=== PATIENT | male | born 1990 | race Caucasian/White ===

== ENCOUNTER 2020-12-20 17:20 | Emergency (ER) | payer OTHER ==
[~2020-12-20] VITALS: Ht 175.3 cm; Wt 94.8 kg
[2020-12-20 17:26] VITALS: BP 169/93
--- NOTE | 2020-12-20 17:26 | NUR ---
AMBULATED TO BED 6
[2020-12-20] MEDS ORDERED: NACL 0.9% 3,000 ML IV ONE (17:35)
--- NOTE | 2020-12-20 17:50 | NUR ---
30 YEAR OLD MALE PRESENTED TO ER REFERRED BY PRIMARY CARE PHYSICIAN TO RULE OUT DKA. PT VERBALIZED GENERALIZED WEAKNESS X 1 WEEK. DENIES PAIN, NAUSEA, DIARRHEA, HEADACHE, DIZZINESS, BLURRY VISION. PATIENT APPEARS PALE. SKIN WARM AND DRY. AO4, BREATHING EVEN AND UNLABORED. BED IN LOWEST POSITION, LOCKED, X1 SIDERAIL UP. PMH - DM, HTN NKA
--- NOTE | 2020-12-20 17:51 | NUR ---
RADIOLOGY AT BEDSIDE
[2020-12-20 17:57] LABS: BASOPHILS # (AUTO) 0.1 K/uL (0.00-0.22); BASOPHILS % (AUTO) 0.7 % (0.0-2.0); EOSINOPHILS # (AUTO) 0.1 K/uL (0-0.4); EOSINOPHILS % (AUTO) 0.5 % (0.0-4.0); HEMATOCRIT 35.6 % (36-52); HEMOGLOBIN 11.8 g/dL (12.0-18.0); LYMPHOCYTES # (AUTO) 1.8 K/uL (2.0-11.5); MEAN CORPUSCULAR HEMOGLOBIN 27 pg (27-31); MEAN CORPUSCULAR HGB CONC 33 g/dL (33-37); MEAN CORPUSCULAR VOLUME 81.1 fL (80-94); MONOCYTES % (AUTO) 7.4 % (1.7-9.3); NEUTROPHILS % (AUTO) 78.4 % (42.2-75.2); PLATELET COUNT (AUTO) 434 K/uL (140-450); RED BLOOD CELL COUNT(AUTO) 4.39 MIL/uL (4.20-6.10); RED CELL DISTRIBUTION WIDTH 13.3 % (11.6-13.7)
[2020-12-20 18:01] LABS: ACETONE, SERUM NEGATIVE (NEGATIVE)
[2020-12-20 18:10] LABS: ALBUMIN 2.8 g/dL (3.4-5.0); ANION GAP 13.7 (8-16); ASPARTATE AMINOTRANSFERASE 15 U/L (15-37); CARBON DIOXIDE 27.1 mmol/L (21-32); CHLORIDE 96 mmol/L (98-107); CREATININE 0.8 mg/dL (0.6-1.3); GFR ARICAN-AMERICAN 147 mL/min (>90); GLUCOSE 343 mg/dL (74-106); POTASSIUM 3.8 mmol/L (3.5-5.1); SODIUM SERUM 133 mmol/L (136-145); TOTAL BILIRUBIN 0.4 mg/dL (0.0-1.0); UREA NITROGEN, BLOOD 11 mg/dL (7-18)
--- NOTE | 2020-12-20 18:10 | NUR ---
MARY JO COOK TEST COLLECTED. WALKED TO LAB.
[2020-12-20] MEDS ORDERED: INSULIN REGULAR, HUMAN 100 UNIT/ML VIAL IV STA (18:23)
--- NOTE | 2020-12-20 19:20 | NUR ---
REPORT GIVEN TO JASWINDER ALMEIDA. TRANSFER OF CARE AT THIS POINT.
--- NOTE | 2020-12-20 19:25 | NUR ---
[facility]. PT ANOx4, ON RA, DENIES PAIN, NO SIGNS OF DISTRESS. REPORTS NOT COMPLETELY COMPLIANT WITH HOME MEDICATIONS AND WAS JUST STARTED ON NEW ORDERS OF INSULIN FOR DM MANAGEMENT. RAC 20G, IVF INFUSING. PATENT NO SYMPTOMS. CONNECTED TO MONITOR, VITALS TAKEN, PT SLIGHTLY TACHYCARDIC. SAFETY MEASURES IN PLACE. PAST MEDICAL HX: DM, HTN, COVID + NKA
--- NOTE | 2020-12-20 19:30 | NUR ---
URINE SAMPLE COLLECTED, LAB CALLED TO PICKUP. PATIENT STARTED ON SECOND IV BOLUS. PER REPORT FROM [facility] NURSE, NEW BLOOD SUGAR 230, PER ER MD, COMPLETE SECOND IV BOLUS AND OK TO D/C WHEN DONE. WILL CARRY OUT.
[2020-12-20 19:49] LABS: APPEARANCE,URINE CLOUDY (CLEAR); BILIRUBIN,URINE NEGATIVE (NEGATIVE); BLOOD, URINE 1+ (NEGATIVE); COLOR,URINE YELLOW (YELLOW); LEUKOCYTE ESTERASE ,URINE TRACE (NEGATIVE); NITRITE, URINE NEGATIVE (NEGATIVE); PH,URINE 5.5 (5.0-9.0); UGLUCOSE 3+ (NEGATIVE)
[2020-12-20 19:58] LABS: RBC,URINE 11-20 (MOD) /HPF (0-5)
--- NOTE | 2020-12-20 20:42 | NUR ---
Patient discharged with v/s stable. Written and verbal after care instructions given and explained. Patient verbalized understanding. Ambulatory with steady gait. All questions addressed prior to discharge. Advised to follow up with PMD. MEDICAL ID BAND REMOVED, PT IN STABLE CONDITION.
[2020-12-20 20:46] VITALS: BP 140/95
--- NOTE | 2020-12-21 20:24 | NUR ---
LATE ENTRY- Normal saline 0.9% IV fluids discontinued at 2039
== END 2020-12-20 20:42 | disposition home or self-care (01) ==
LOC: MED 17:20
DX: E11.65 Type 2 diabetes mellitus with hyperglycemia (principal); I10 Essential (primary) hypertension; Z20.822 Contact with and (suspected) exposure to COVID-19
CPT/HCPCS: 36415; 71045; 80053; 81001; 82009; 82803; 83036; 85025; 87040; 87086; 87426; 96361; 96374; 99285; J1815; J7030

== ENCOUNTER 2021-02-28 20:03 | Emergency (ER) | payer OTHER ==
[~2021-02-28] VITALS: Ht 175.3 cm; Wt 94.3 kg
[2021-02-28 20:16] VITALS: BP 177/90
--- NOTE | 2021-02-28 20:16 | NUR ---
TO BED AMBULATORY
[2021-02-28] MEDS ORDERED: VANCOMYCIN 1,000 MG in DEXTROSE 5% 250 ML IV ONE (21:10)
--- NOTE | 2021-02-28 21:11 | NUR ---
PT MOVED TO ER BED 11
[2021-02-28] MEDS ORDERED: SULF-58 PO (21:15)
[2021-02-28] MEDS ORDERED: CEPH-588 PO (21:15)
[2021-02-28] MEDS ORDERED: VANCOMYCIN 1,000 MG VIAL ONE (21:16)
--- NOTE | 2021-02-28 21:20 | NUR ---
Dr. Cassidy examining patient.
--- NOTE | 2021-02-28 21:30 | NUR ---
30 YO/M C/O LOWER L LEG WOUND X 4 DAYS, WITH REDNESS, SWELLING AND TENDER TO TOUCH. CENTERED DIME SIZE SCAB NOTED WITH REDNESS AROUND IT, AND SWELLING. NO PUS OR DRAINAGE NOTED. PATIENT LAYING IN BED LOCKED IN LOWEST POSITION, HOB FLAT PER PATIENT REQUEST. PMH: HTN, DIABETES, DEPRESSION NKA
--- NOTE | 2021-02-28 22:15 | NUR ---
PT RESTING COMFORTABLY IN GURNEY, BED LOCKED AND IN LOWEST POSITION, HOB ELEVATED, SIDE RAIL X 1. VSS. NO ACUTE DISTRESS NOTED.
[2021-02-28 23:21] VITALS: BP 160/103
--- NOTE | 2021-02-28 23:21 | NUR ---
Patient discharged with v/s stable. Written and verbal after care instructions given and explained. Patient alert, oriented and verbalized understanding of instructions. Ambulatory with steady gait. All questions addressed prior to discharge. ID band removed. Patient advised to follow up with PMD. Rx of KEFLEX, BACTRIM given. Patient educated on indication of medication including possible reaction and side effects. Opportunity to ask questions provided and answered.
== END 2021-02-28 23:21 | disposition home or self-care (01) ==
LOC: MED 20:03
DX: L03.116 Cellulitis of left lower limb (principal); E11.9 Type 2 diabetes mellitus without complications; I10 Essential (primary) hypertension
CPT/HCPCS: 36415; 87040; 96365; 99284; J3370; J7060

== ENCOUNTER 2022-09-18 10:31 | Inpatient (IN) | payer OTHER ==
[~2022-09-18] VITALS: Ht 175.3 cm; Wt 94.8 kg
[~2022-09-18 10:31] MED LIST: CEPH-588 PO; SULF-58 PO
[2022-09-18 10:38] VITALS: BP 186/116
[2022-09-18] MEDS ORDERED: VANCOMYCIN PER PHARMACY MC PRN ×2 (12:40→14:00)
[2022-09-18 13:07] LABS: BASOPHILS % (AUTO) 0.4 % (0.0-2.0); EOSINOPHILS # (AUTO) 0.1 K/uL (0-0.4); EOSINOPHILS % (AUTO) 1.5 % (0.0-4.0); HEMATOCRIT 33.2 % (36-52); HEMOGLOBIN 11.2 g/dL (12.0-18.0); LYMPHOCYTES # (AUTO) 2.3 K/uL (2.0-11.5); LYMPHOCYTES % (AUTO) 26.4 % (20.5-51.1); MEAN CORPUSCULAR HEMOGLOBIN 28 pg (27-31); MEAN CORPUSCULAR HGB CONC 34 g/dL (33-37); MEAN CORPUSCULAR VOLUME 82.8 fL (80-94); MONOCYTES # (AUTO) 0.8 K/uL (0.8-1.0); MONOCYTES % (AUTO) 9.3 % (1.7-9.3); NEUTROPHILS # (AUTO) 5.3 K/uL (1.8-7.7); NEUTROPHILS % (AUTO) 62.4 % (42.2-75.2); PLATELET COUNT (AUTO) 360 K/uL (140-450); RED BLOOD CELL COUNT(AUTO) 4.02 MIL/uL (4.20-6.10); RED CELL DISTRIBUTION WIDTH 12.6 % (11.6-13.7); WHITE BLOOD COUNT (AUTO) 8.6 K/uL (4.8-10.8)
[2022-09-18 13:17] LABS: ANION GAP 10.9 (8-16); CARBON DIOXIDE 31.1 mmol/L (21-32)
[2022-09-18] MEDS ORDERED: NACL 0.9% 1,000 ML IV ONE (13:25)
[2022-09-18] MEDS ORDERED: VANCOMYCIN 2,000 MG in DEXTROSE 5% 250 ML IV ONE (13:25)
[2022-09-18] MEDS ORDERED: VANCOMYCIN 1,500 MG in NACL 0.9% 500 ML IV SCH (14:00)
[2022-09-18] MEDS ORDERED: HYDROcodone/APAP 5/325 MG 1 TAB TAB PO PRN (14:00)
[2022-09-18] MEDS ORDERED: ONDANSETRON 4 MG/2 ML VIAL IVP PRN (14:00)
[2022-09-18] MEDS ORDERED: ACETAMINOPHEN 325 MG TAB PO PRN (14:00)
[2022-09-18] MEDS ORDERED: MORPHINE SULFATE 4 MG/ML SYR IVP PRN (14:00)
[2022-09-18] MEDS ORDERED: NIFE60TE79 PO (15:01)
[2022-09-18] MEDS ORDERED: DEXTROSE 50% 50 ML SYR IVP PRN (16:10)
[2022-09-18] MEDS: BLOOD GLUCOSE MONITORING 1 DEV DEV FS SCH ×2 (16:30→21:23)
[2022-09-18 17:30] VITALS: BP 125/71
[2022-09-18] MEDS: INSULIN LISPRO SLIDING SCALE 100 UNITS/ML VIAL SUBQ PRN ×2 (17:52→21:39)
[2022-09-18 20:00] VITALS: BP 160/90
[2022-09-19] MEDS ORDERED: VANCOMYCIN 1,000 MG VIAL ONE (02:12)
[2022-09-19] MEDS ORDERED: VANCOMYCIN 500 MG VIAL ONE (02:13)
[2022-09-19] MEDS: VANCOMYCIN 1,500 MG in NACL 0.9% 500 ML IV SCH ×2 (03:00→13:47)
[2022-09-19 05:00] VITALS: BP 150/93
[2022-09-19] MEDS: BLOOD GLUCOSE MONITORING 1 DEV DEV FS SCH ×4 (06:13→21:21)
[2022-09-19] MEDS: INSULIN LISPRO SLIDING SCALE 100 UNITS/ML VIAL SUBQ PRN ×4 (06:13→22:12)
[2022-09-19 06:43] LABS: CARBON DIOXIDE 27.4 mmol/L (21-32); CREATININE 0.8 mg/dL (0.6-1.3); POTASSIUM 3.4 mmol/L (3.5-5.1)
[2022-09-19 06:57] LABS: MAGNESIUM 1.5 mg/dL (1.8-2.4); PHOSPHORUS 3.2 mg/dL (2.5-4.9)
[2022-09-19] MEDS: DOCUSATE SODIUM 100 MG GELCAP PO SCH (09:37)
[2022-09-19] MEDS ORDERED: NIFE60TE5 PO (11:08)
[2022-09-19] MEDS ORDERED: METF-346 PO (11:08)
[2022-09-19] MEDS ORDERED: POTASSIUM CHLORIDE 10 MEQ TABER PO SCH (11:30)
[2022-09-19] MEDS ORDERED: MAG SULF 2000 MG/WATER PREMIX 50 ML IV SCH (11:30)
[2022-09-19] MEDS: NIFEdipine 60 MG TABER PO SCH (13:47)
[2022-09-19 16:00] VITALS: BP 165/107
[2022-09-19] MEDS: metFORMIN 500 MG TAB PO SCH (17:16)
[2022-09-19] MEDS: hydrALAZINE 10 MG TAB PO PRN (22:38)
[2022-09-20] VITALS: BP 169/100
[2022-09-20] MEDS: VANCOMYCIN 1,500 MG in NACL 0.9% 500 ML IV SCH ×2 (02:08→14:07)
[2022-09-20 04:00] VITALS: BP 127/78
[2022-09-20 06:27] LABS: ANION GAP 11.5 (8-16); CARBON DIOXIDE 28.2 mmol/L (21-32); CREATININE 0.7 mg/dL (0.6-1.3); POTASSIUM 3.7 mmol/L (3.5-5.1)
[2022-09-20 06:46] LABS: MAGNESIUM 1.7 mg/dL (1.8-2.4); PHOSPHORUS 2.8 mg/dL (2.5-4.9)
[2022-09-20] MEDS: BLOOD GLUCOSE MONITORING 1 DEV DEV FS SCH ×4 (07:50→21:48)
[2022-09-20] MEDS: NIFEdipine 60 MG TABER PO SCH (09:07)
[2022-09-20] MEDS: metFORMIN 500 MG TAB PO SCH ×2 (09:07→16:07)
[2022-09-20] MEDS: DOCUSATE SODIUM 100 MG GELCAP PO SCH (09:07)
[2022-09-20] MEDS: INSULIN LISPRO SLIDING SCALE 100 UNITS/ML VIAL SUBQ PRN ×4 (09:13→21:51)
[2022-09-20] MEDS ORDERED: MAG SULF 2000 MG/WATER PREMIX 50 ML IV SCH (11:00)
[2022-09-20 14:14] LABS: BASOPHILS # (AUTO) 0.1 K/uL (0.00-0.22); BASOPHILS % (AUTO) 0.6 % (0.0-2.0); EOSINOPHILS # (AUTO) 0.2 K/uL (0-0.4); HEMATOCRIT 29.7 % (36-52); HEMOGLOBIN 9.9 g/dL (12.0-18.0); LYMPHOCYTES # (AUTO) 3.6 K/uL (2.0-11.5); LYMPHOCYTES % (AUTO) 36.1 % (20.5-51.1); MEAN CORPUSCULAR HEMOGLOBIN 28 pg (27-31); MEAN CORPUSCULAR HGB CONC 33 g/dL (33-37); MEAN CORPUSCULAR VOLUME 83.5 fL (80-94); MONOCYTES # (AUTO) 1.3 K/uL (0.8-1.0); MONOCYTES % (AUTO) 12.6 % (1.7-9.3); NEUTROPHILS # (AUTO) 4.9 K/uL (1.8-7.7); NEUTROPHILS % (AUTO) 48.7 % (42.2-75.2); PLATELET COUNT (AUTO) 349 K/uL (140-450); RED BLOOD CELL COUNT(AUTO) 3.56 MIL/uL (4.20-6.10); RED CELL DISTRIBUTION WIDTH 12.4 % (11.6-13.7)
[2022-09-20 16:00] VITALS: BP 146/83
[2022-09-21] VITALS: BP 167/93
[2022-09-21] MEDS: VANCOMYCIN 1,500 MG in NACL 0.9% 500 ML IV SCH ×2 (02:08→13:40)
[2022-09-21] MEDS: hydrALAZINE 10 MG TAB PO PRN (03:49)
[2022-09-21 06:04] LABS: MAGNESIUM 1.6 mg/dL (1.8-2.4); PHOSPHORUS 3.1 mg/dL (2.5-4.9)
[2022-09-21 06:12] LABS: ANION GAP 10.4 (8-16); CARBON DIOXIDE 28.4 mmol/L (21-32); CREATININE 0.8 mg/dL (0.6-1.3); POTASSIUM 3.8 mmol/L (3.5-5.1)
[2022-09-21] MEDS: BLOOD GLUCOSE MONITORING 1 DEV DEV FS SCH ×4 (06:39→20:40)
[2022-09-21] MEDS: INSULIN LISPRO SLIDING SCALE 100 UNITS/ML VIAL SUBQ PRN ×4 (06:41→20:44)
[2022-09-21 08:00] VITALS: BP 159/99
[2022-09-21] MEDS: metFORMIN 500 MG TAB PO SCH ×2 (08:54→17:00)
[2022-09-21] MEDS: NIFEdipine 60 MG TABER PO SCH (08:56)
[2022-09-21] MEDS: DOCUSATE SODIUM 100 MG GELCAP PO SCH (08:56)
[2022-09-21] MEDS ORDERED: MAG SULF 2000 MG/WATER PREMIX 100 ML IV ONE (14:55)
[2022-09-21 16:00] VITALS: BP 138/89
[2022-09-21] MEDS ORDERED: INSULIN LANTUS 100 UNITS/ML 10 ML VIAL SUBQ SCH (16:05)
[2022-09-21 17:49] LABS: APPEARANCE,URINE CLEAR (CLEAR); BILIRUBIN,URINE NEGATIVE (NEGATIVE); BLOOD, URINE TRACE-I (NEGATIVE); COLOR,URINE YELLOW (YELLOW); LEUKOCYTE ESTERASE ,URINE NEGATIVE (NEGATIVE); NITRITE, URINE NEGATIVE (NEGATIVE); UGLUCOSE 3+ (NEGATIVE)
[2022-09-21 18:00] LABS: OTHER CASTS, URINE None Seen /LPF (None Seen); WBC,URINE 0-5 /HPF (0-5); YEAST,URINE Few /HPF (None Seen)
[2022-09-21 20:00] VITALS: BP 153/82
[2022-09-22] MEDS: VANCOMYCIN 1,500 MG in NACL 0.9% 500 ML IV SCH (02:00)
[2022-09-22 04:00] VITALS: BP 150/91
[2022-09-22 05:43] LABS: BASOPHILS # (AUTO) 0.1 K/uL (0.00-0.22); BASOPHILS % (AUTO) 0.7 % (0.0-2.0); EOSINOPHILS # (AUTO) 0.2 K/uL (0-0.4); EOSINOPHILS % (AUTO) 2.7 % (0.0-4.0); HEMATOCRIT 31.2 % (36-52); HEMOGLOBIN 10.7 g/dL (12.0-18.0); LYMPHOCYTES # (AUTO) 3.6 K/uL (2.0-11.5); LYMPHOCYTES % (AUTO) 39.5 % (20.5-51.1); MEAN CORPUSCULAR HEMOGLOBIN 28 pg (27-31); MEAN CORPUSCULAR HGB CONC 34 g/dL (33-37); MEAN CORPUSCULAR VOLUME 81.5 fL (80-94); NEUTROPHILS # (AUTO) 4.2 K/uL (1.8-7.7); NEUTROPHILS % (AUTO) 46.1 % (42.2-75.2); PLATELET COUNT (AUTO) 387 K/uL (140-450); RED BLOOD CELL COUNT(AUTO) 3.83 MIL/uL (4.20-6.10); RED CELL DISTRIBUTION WIDTH 12.9 % (11.6-13.7)
[2022-09-22 06:14] LABS: MAGNESIUM 1.8 mg/dL (1.8-2.4); PHOSPHORUS 3.4 mg/dL (2.5-4.9)
[2022-09-22 06:17] LABS: ANION GAP 9.4 (8-16); CARBON DIOXIDE 29.3 mmol/L (21-32); CREATININE 0.8 mg/dL (0.6-1.3); POTASSIUM 3.7 mmol/L (3.5-5.1)
[2022-09-22] MEDS: INSULIN LISPRO SLIDING SCALE 100 UNITS/ML VIAL SUBQ PRN (06:51)
[2022-09-22] MEDS: BLOOD GLUCOSE MONITORING 1 DEV DEV FS SCH ×2 (06:51→11:30)
[2022-09-22] MEDS: metFORMIN 500 MG TAB PO SCH (08:00)
[2022-09-22] MEDS: DOCUSATE SODIUM 100 MG GELCAP PO SCH (09:00)
[2022-09-22] MEDS ORDERED: INSULIN LANTUS 100 UNITS/ML 10 ML VIAL SUBQ SCH (09:00)
[2022-09-22] MEDS: NIFEdipine 60 MG TABER PO SCH (09:00)
[2022-09-22 13:36] VITALS: BP 126/81
== END 2022-09-22 14:32 | disposition home or self-care (01) | DRG 383 ==
LOC: MED 10:31 → MTU 14:03 → MMU 15:32
PROVIDERS: ADMIT Hospitalist; ATTEND Emergency Medicine
DX: L03.116 Cellulitis of left lower limb (principal); E11.00 Type 2 diabetes mellitus with hyperosmolarity without nonketotic hyperglycemic-hyperosmolar coma (NKHHC); E66.9 Obesity, unspecified; I10 Essential (primary) hypertension; Z20.822 Contact with and (suspected) exposure to COVID-19; Z68.30 Body mass index [BMI] 30.0-30.9, adult; Z79.4 Long term (current) use of insulin; R22.42 Localized swelling, mass and lump, left lower limb
CPT/HCPCS: 36415; 73701; 80048; 80202; 81001; 82948; 83036; 83735; 84100; 85025; 87040; 87081; 87491; 93971; 96361; 96365; 96367; 99285; J0696; J1644; J1815; J3370; J3475; J7030; J7060; Q0092; Q9967

== ENCOUNTER 2023-04-05 17:05 | Inpatient (IN) | payer OTHER ==
[~2023-04-05] VITALS: Ht 175.3 cm; Wt 93.0 kg
[2023-04-05] MEDS: metroNIDAZOLE 500 MG/NS PREMIX 100 ML IV SCH (01:00)
[~2023-04-05 17:05] MED LIST changes: +METF-346 PO; +NIFE60TE5 PO; +NIFE60TE79 PO
[2023-04-05 17:18] VITALS: BP 157/115
--- NOTE | 2023-04-05 17:23 | NUR ---
32 yo/m presents to ED w c/o R second toe swelling, red, with occasional white discharge x2 weeks s/p being stepped on by a coworker. pt denies any pain. pt takes metformin and insulin. pmh: htn, dm allergies: denies
[2023-04-05] MEDS ORDERED: NACL 0.9% 1,000 ML IV ONE (17:40)
[2023-04-05] MEDS ORDERED: VANCOMYCIN 1,000 MG in DEXTROSE 5% 250 ML IV ONE (17:40)
[2023-04-05 18:13] LABS: BASOPHILS # (AUTO) 0.1 K/uL (0.00-0.22); BASOPHILS % (AUTO) 0.8 % (0.0-2.0); EOSINOPHILS # (AUTO) 0.2 K/uL (0-0.4); EOSINOPHILS % (AUTO) 1.1 % (0.0-4.0); HEMATOCRIT 36.5 % (36-52); HEMOGLOBIN 12.3 g/dL (12.0-18.0); LYMPHOCYTES # (AUTO) 2.5 K/uL (2.0-11.5); LYMPHOCYTES % (AUTO) 17.4 % (20.5-51.1); MEAN CORPUSCULAR HEMOGLOBIN 28 pg (27-31); MEAN CORPUSCULAR HGB CONC 34 g/dL (33-37); MEAN CORPUSCULAR VOLUME 82.9 fL (80-94); MONOCYTES # (AUTO) 1.1 K/uL (0.8-1.0); NEUTROPHILS # (AUTO) 10.3 K/uL (1.8-7.7); NEUTROPHILS % (AUTO) 72.7 % (42.2-75.2); PLATELET COUNT (AUTO) 319 K/uL (140-450); RED CELL DISTRIBUTION WIDTH 12.5 % (11.6-13.7); WHITE BLOOD COUNT (AUTO) 14.2 K/uL (4.8-10.8)
[2023-04-05 18:25] LABS: ACETONE, SERUM NEGATIVE (NEGATIVE)
[2023-04-05] MEDS ORDERED: VANCOMYCIN 1,000 MG VIAL ONE (18:30)
[2023-04-05 18:33] LABS: ALBUMIN 2.9 g/dL (3.4-5.0); ANION GAP 11.4 (8-16); ASPARTATE AMINOTRANSFERASE 19 U/L (15-37); CARBON DIOXIDE 29.8 mmol/L (21-32); CHLORIDE 93 mmol/L (98-107); CREATININE 1.1 mg/dL (0.6-1.3); GFR ARICAN-AMERICAN 100 mL/min (>90); POTASSIUM 4.2 mmol/L (3.5-5.1); SODIUM SERUM 130 mmol/L (136-145); TOTAL BILIRUBIN 0.2 mg/dL (0.0-1.0); UREA NITROGEN, BLOOD 18 mg/dL (7-18)
[2023-04-05 18:37] LABS: GLUCOSE 457 mg/dL (74-106)
[2023-04-05] MEDS ORDERED: INSULIN REGULAR, HUMAN 100 UNIT/ML VIAL IV ONE (19:05)
--- NOTE | 2023-04-05 19:20 | NUR ---
pt report given to march rn
[2023-04-05] MEDS ORDERED: INSU100I7 SQ (19:29)
[2023-04-05] MEDS ORDERED: INSU100I21 SQ (19:29)
--- NOTE | 2023-04-05 19:33 | NUR ---
Med rec review done.
--- NOTE | 2023-04-05 19:48 | NUR ---
urine sample collected and sent to lab.
[2023-04-05 19:52] LABS: APPEARANCE,URINE CLEAR (CLEAR); BILIRUBIN,URINE NEGATIVE (NEGATIVE); BLOOD, URINE 1+ (NEGATIVE); COLOR,URINE YELLOW (YELLOW); LEUKOCYTE ESTERASE ,URINE 1+ (NEGATIVE); NITRITE, URINE NEGATIVE (NEGATIVE); UGLUCOSE 3+ (NEGATIVE)
[2023-04-05] MEDS ORDERED: ONDANSETRON 4 MG/2 ML VIAL IVP PRN (19:55)
[2023-04-05] MEDS ORDERED: HYDROcodone/APAP 5/325 MG 1 TAB TAB PO PRN (19:55)
[2023-04-05] MEDS ORDERED: MORPHINE SULFATE 4 MG/ML SYR IVP PRN (19:55)
[2023-04-05] MEDS ORDERED: ACETAMINOPHEN 325 MG TAB PO PRN (19:55)
[2023-04-05] MEDS ORDERED: KCL 20 MEQ IN 100 mL PREMIX 200 ML IV PRN (19:55)
[2023-04-05] MEDS ORDERED: POTASSIUM CHLORIDE 10 MEQ TABER PO PRN (19:55)
[2023-04-05] MEDS ORDERED: VANCOMYCIN PER PHARMACY MC PRN (19:55)
[2023-04-05] MEDS ORDERED: MAG SULF 2000 MG/WATER PREMIX 50 ML IV PRN (19:55)
[2023-04-05] MEDS ORDERED: POTASSIUM CHL 40 MEQ/ D5-1/2NS 1,000 ML IV SCH (19:55)
[2023-04-05] MEDS ORDERED: DEXTROSE 50% 50 ML SYR IVP PRN (20:00)
[2023-04-05] MEDS ORDERED: VANCOMYCIN 500 MG in DEXTROSE 5% 100 ML IV ONE (21:00)
--- NOTE | 2023-04-05 21:29 | NUR ---
Patient will be admitted to care of Dr. Rincon. Admited to [facility]. Will go to room 106A. Belongings list completed. Report to JASWINDER [place].
[2023-04-05 21:35] VITALS: BP 130/83
--- NOTE | 2023-04-05 21:35 | NUR ---
ADMITTED FROM ER A 32 Y/O PATIENT VIA WHEELCHAIR WITH THE CHIEF COMPLAINTS OF NON HEALING WOUND TO RIGHT 2ND TOE. DX: OSTEOMYELITIS. AAOX4. NO SOB NOTED. AMBULATORY. NASAL SWAB DONE FOR MRSA SCREENING. BED WHEELS LOCKED IN LOW POSITION. CALL LIGHT WITHIN REACH. IVF STARTED.
[2023-04-05] MEDS ORDERED: VANCOMYCIN 500 MG VIAL ONE (22:29)
[2023-04-05] MEDS ORDERED: cefTRIAXone 1,000 MG VIAL ONE (22:31)
[2023-04-05] MEDS: NACL 0.9% 1,000 ML IV SCH (22:55)
[2023-04-05] MEDS: BLOOD GLUCOSE MONITORING 1 DEV DEV FS SCH (23:00)
[2023-04-05] MEDS: INSULIN LISPRO SLIDING SCALE 100 UNITS/ML VIAL SUBQ PRN (23:06)
[2023-04-06] MEDS: metroNIDAZOLE 500 MG/NS PREMIX 100 ML IV SCH ×3 (01:00→17:14)
[2023-04-06 04:00] VITALS: BP 157/98
[2023-04-06] MEDS ORDERED: VANCOMYCIN 500 MG VIAL ONE (04:49)
[2023-04-06] MEDS ORDERED: VANCOMYCIN 1,500 MG in DEXTROSE 5% 500 ML IV ONE (06:00)
[2023-04-06] MEDS: INSULIN LISPRO SLIDING SCALE 100 UNITS/ML VIAL SUBQ PRN ×4 (06:30→21:37)
[2023-04-06] MEDS: BLOOD GLUCOSE MONITORING 1 DEV DEV FS SCH ×4 (06:35→21:40)
--- NOTE | 2023-04-06 07:23 | NUR ---
DARYN BEDSIDE REPORT TO MORNING NURSE FOR CONTINUITY OF CARE. PATIENT STABLE.
--- NOTE | 2023-04-06 07:24 | NUR ---
RECEIVED PT FROM NURSING TEACHER NURSE FOR CONTINUITY OF CARE. PT IS AWAKE. AOX4. ABLE TO VERBALIZE NEEDS. RESPIRATIONS EVEN AND UNLABORED ON RA. IV INTACT AND PATENT ON R HAND 20G INFUSING NS @ 80. SKIN IS WARM AND DRY. ALL SAFETY PRECAUTIONS IN PLACE. CALL LIGHT WITHIN REACH.
[2023-04-06 07:28] LABS: ANION GAP 9.8 (8-16); CARBON DIOXIDE 29.6 mmol/L (21-32); CREATININE 0.8 mg/dL (0.6-1.3); POTASSIUM 3.4 mmol/L (3.5-5.1)
[2023-04-06 07:30] LABS: BASOPHILS % (AUTO) 0.3 % (0.0-2.0); EOSINOPHILS # (AUTO) 0.2 K/uL (0-0.4); EOSINOPHILS % (AUTO) 1.5 % (0.0-4.0); HEMOGLOBIN 11.4 g/dL (12.0-18.0); LYMPHOCYTES # (AUTO) 2.8 K/uL (2.0-11.5); LYMPHOCYTES % (AUTO) 28.8 % (20.5-51.1); MEAN CORPUSCULAR HEMOGLOBIN 29 pg (27-31); MEAN CORPUSCULAR HGB CONC 35 g/dL (33-37); MEAN CORPUSCULAR VOLUME 82.4 fL (80-94); MONOCYTES # (AUTO) 0.9 K/uL (0.8-1.0); MONOCYTES % (AUTO) 8.9 % (1.7-9.3); NEUTROPHILS % (AUTO) 60.5 % (42.2-75.2); PLATELET COUNT (AUTO) 277 K/uL (140-450); RED CELL DISTRIBUTION WIDTH 12.5 % (11.6-13.7); WHITE BLOOD COUNT (AUTO) 9.9 K/uL (4.8-10.8)
[2023-04-06 07:31] LABS: MAGNESIUM 1.5 mg/dL (1.8-2.4); PHOSPHORUS 3.4 mg/dL (2.5-4.9)
[2023-04-06 08:00] VITALS: BP 162/107
[2023-04-06] MEDS: NACL 0.9% 1,000 ML IV SCH ×2 (08:25→20:55)
[2023-04-06] MEDS: DOCUSATE SODIUM 100 MG GELCAP PO SCH (08:58)
--- NOTE | 2023-04-06 08:59 | NUR ---
PATIENT HAS BEEN SCREENED AND CATEGORIZED HIGH NUTRITION RISK. PATIENT WILL BE SEEN WITHIN 1-2 DAYS OF ADMISSION. FNS CONSULT RECEIVED FOR UNCONTROLLED DIABETES AND WOUND ON 04/06/23. 04/06/23-04/07/[address]
--- NOTE | 2023-04-06 09:12 | NUR ---
SCHEDULED MEDICATIONS GIVEN AND PRN FOR POTASSIUM COVERAGE. PT TOLERATED WELL.
[2023-04-06] MEDS: NIFEdipine 60 MG TABER PO SCH (10:13)
--- NOTE | 2023-04-06 11:05 | NUR ---
WOUND CARE NOTE: PER CHARGE NURSE REQUEST RIGHT 2ND TOE WOUND ASSESSED, WOUND CX OBTAINED. RIGHT 2ND TOE WOUND 0.3X0.3CM UNABLE TO ASSESS DEPTH DUE TO PINPOINT OPEN. NAIL WAS REMOVED YESTERDAY, PER PT TOE SYLVIA FOR ABOUT A WEEK. .PINK NAIL BED 0.8X0.8CM. PURULENT DRAINAGE OOZING OUT WHEN AREA PRESSED,ERYTHEMA, PAIN 0/10. POC DISCUSSED WITH PT. AND RECOMMEND PODIATRY CONSULT. POC DISCUSSED WITH CHARGE NURSE DARLINE AND PRIMARY NURSE BHUPINDER. RECOMMENDATIONS -PODIATRY CONSULT. -PLEASE FOLLOW UP WOUND CX RESULT -APPLY SOAKED BETADINE 2X2 GAUZE TO RIGHT 2ND TOE, WRAP WITH KERLIX ROLL, SECURED WITH TAPE DAILY AND PRN IF SOILING.
[2023-04-06 14:19] VITALS: BP 128/76
--- NOTE | 2023-04-06 14:47 | NUR ---
04/06/23 RD INITIAL ASSESSMENT COMPLETED PLEASE REFER TO NUTRITION ASSESSMENT UNDER CARE ACTIVITY FOR ESTIMATED NUTRITIONAL NEEDS. 1. RD RECOMMENDS TO CHANGE CCHO 60GMS TO CCHO 45GRAMS DIET TOLERATED 2. RD RECOMMENDS PRSOURCE BID TO HELP WITH WOUNDS. THIS WILL PROVIDE 120 CALORIES AND 30 GRAMS OF PROTEIN. 3. RD WILL MONTIOR PO INTAKE, DIET AND LAB VALUES. 4. RD TO FOLLOW-UP 3-5 DAYS, MODERATE RISK MONSERRAT MARQUEZ RD
[2023-04-06] MEDS: VANCOMYCIN 1,500 MG in NACL 0.9% 500 ML IV SCH (18:33)
--- NOTE | 2023-04-06 19:20 | NUR ---
ENDORSED PT TO JEWEL BEARING GRINDER NURSE FOR CONTINUITY OF CARE. PT IS STABLE.
--- NOTE | 2023-04-06 21:34 | NUR ---
SCHEDULED MEDICATIONS DUE GIVEN.
[2023-04-07] MEDS: metroNIDAZOLE 500 MG/NS PREMIX 100 ML IV SCH ×3 (01:22→18:10)
--- NOTE | 2023-04-07 01:22 | NUR ---
FLAGYL ADMINISTERED ORDERED. PATIENT AWAKE NO RESPIRATORY DISTRESS NOTED. BREATHING NORMAL. CALL LIGHT WITHIN REACH.
[2023-04-07 04:00] VITALS: BP 152/91
[2023-04-07] MEDS: VANCOMYCIN 1,500 MG in NACL 0.9% 500 ML IV SCH ×2 (05:29→19:33)
[2023-04-07] MEDS: INSULIN LISPRO SLIDING SCALE 100 UNITS/ML VIAL SUBQ PRN ×4 (06:41→21:00)
[2023-04-07] MEDS: BLOOD GLUCOSE MONITORING 1 DEV DEV FS SCH ×4 (06:41→20:59)
[2023-04-07 06:51] LABS: BASOPHILS % (AUTO) 0.5 % (0.0-2.0); EOSINOPHILS # (AUTO) 0.1 K/uL (0-0.4); EOSINOPHILS % (AUTO) 1.3 % (0.0-4.0); HEMATOCRIT 35.5 % (36-52); HEMOGLOBIN 11.8 g/dL (12.0-18.0); LYMPHOCYTES # (AUTO) 2.5 K/uL (2.0-11.5); LYMPHOCYTES % (AUTO) 29.2 % (20.5-51.1); MEAN CORPUSCULAR HEMOGLOBIN 28 pg (27-31); MEAN CORPUSCULAR HGB CONC 33 g/dL (33-37); MEAN CORPUSCULAR VOLUME 84.1 fL (80-94); MONOCYTES # (AUTO) 0.8 K/uL (0.8-1.0); MONOCYTES % (AUTO) 9.4 % (1.7-9.3); NEUTROPHILS # (AUTO) 5.1 K/uL (1.8-7.7); NEUTROPHILS % (AUTO) 59.6 % (42.2-75.2); PLATELET COUNT (AUTO) 298 K/uL (140-450); RED BLOOD CELL COUNT(AUTO) 4.22 MIL/uL (4.20-6.10); RED CELL DISTRIBUTION WIDTH 12.5 % (11.6-13.7); WHITE BLOOD COUNT (AUTO) 8.6 K/uL (4.8-10.8)
[2023-04-07 07:06] LABS: ANION GAP 12.1 (8-16); CARBON DIOXIDE 27.8 mmol/L (21-32); CREATININE 0.8 mg/dL (0.6-1.3); POTASSIUM 3.9 mmol/L (3.5-5.1)
[2023-04-07 07:10] LABS: MAGNESIUM 2.1 mg/dL (1.8-2.4); PHOSPHORUS 3.2 mg/dL (2.5-4.9)
--- NOTE | 2023-04-07 07:15 | NUR ---
RECEIVED REPORT FROM ROXIE SAN FOR CONTINUITY OF CARE. INITIAL ASSESSMENT DONE. ALERT AND ORIENTED X 4. RESP. EVEN AND UNLABORED. ON ROOM AIR. IVF INFUSING WELL. NO C/O PAIN OR DISCOMFORT. CALL LIGHT KEPT WITHIN REACH. PT WILL MONITOR CLOSELY.
--- NOTE | 2023-04-07 07:17 | NUR ---
ENDORSED PATIENT TO NURSE MARCOS FOR CONTINUITY OF CARE.
[2023-04-07] MEDS: DOCUSATE SODIUM 100 MG GELCAP PO SCH (09:23)
--- NOTE | 2023-04-07 09:23 | NUR ---
SCHEDULED MEDICATIONS GIVEN. TOLERATED WELL.
[2023-04-07] MEDS: NIFEdipine 60 MG TABER PO SCH (09:24)
[2023-04-07] MEDS: NACL 0.9% 1,000 ML IV SCH ×2 (09:25→16:28)
--- NOTE | 2023-04-07 10:39 | NUR ---
FLAGYL IV GIVEN BY SARY SAN. TOLERATED WELL.
--- NOTE | 2023-04-07 10:57 | NUR ---
Patient's Plan of Care was discussed and reviewed with PATIENT NAVIGATOR:
[2023-04-07] MEDS: hydrALAZINE 20 MG/ML VIAL IVP PRN (11:45)
--- NOTE | 2023-04-07 11:45 | NUR ---
NOTED BP 166/96. PRN HYDRALAZINE IVP WAS GIVEN BY SARY SAN. TOLERATED WELL.
--- NOTE | 2023-04-07 12:37 | NUR ---
BS CHECKED 270. INSULIN WAS GIVEN PER SLIDING SCALE.
--- NOTE | 2023-04-07 12:45 | NUR ---
RECHECKED BP 154/98. NO C/O DIZZINESS, HEADACHE.
[2023-04-07] MEDS: GAUZE TP SCH (13:58)
--- NOTE | 2023-04-07 13:58 | NUR ---
WOUND CARE DONE. TOLERATED WELL.
[2023-04-07 16:00] VITALS: BP 158/83
--- NOTE | 2023-04-07 17:02 | NUR ---
BS CHECKED 245. INSULIN WAS GIVEN PER SLIDING SCALE. TOLERATED WELL.
--- NOTE | 2023-04-07 18:10 | NUR ---
FLAGYL IV WAS GIVEN BY SARY SAN. TOLERATED WELL.
--- NOTE | 2023-04-07 19:33 | NUR ---
VANCOMYCIN IV WAS GIVEN BY SARY SAN. TOLERATED WELL.
--- NOTE | 2023-04-07 19:40 | NUR ---
BEDSIDE REPORT GIVEN TO NIGHT NURSE CONCHA FOR CONTINUITY OF CARE. REMAINS STABLE.
--- NOTE | 2023-04-07 19:41 | NUR ---
RECEIVED PT FROM MORNING SHIFT NURSE. PT IS AOX4, AMBULATORY, ABLE TO VERBALIZE NEEDS AND ABLE TO FOLLOW COMMAND. PT'S MOTHER IS ON BEDSIDE. PT IS ON ROOM AND ON RIGHT HAND GAUGE 20 RUNNING WITH NS AT 80ML/HR. PT HAS BEDSIDE URINAL AND HAD WOUND ON RIGHT 2ND TOE. ALL SAFETY MEASURES IMPLEMENTED. BED IN LOW POSITION, BED WHEELS ON LOCK AND CALL LIGHT WITHIN REACH.
--- NOTE | 2023-04-07 20:58 | NUR ---
SCHEDULED AND PRESCRIBED MEDICATION WAS GIVEN TO PT PER MD ORDER. ALL SAFETY MEASURES IMPLEMENTED. BED IN LOW POSITION, BED WHEELS ON LOCK AND CALL LIGHT WITHIN REACH.
--- NOTE | 2023-04-07 21:00 | NUR ---
PT BLOOD GLUCOSE IS 277. HUMALOG INSULIN 6 UNITS WAS GIVEN TO PT PER MD ORDER.
[2023-04-08] VITALS: BP 147/94
[2023-04-08] MEDS: metroNIDAZOLE 500 MG/NS PREMIX 100 ML IV SCH ×4 (00:33→21:48)
--- NOTE | 2023-04-08 02:00 | NUR ---
PT IS ON SLEEP. CHEST RISE AND FALL SYMMETRICALLY NOTED. RESPIRATION IS EVEN AND UNLABORED. ALL SAFETY MEASURES IMPLEMENTED. BED IN LOW POSITION, BED WHEELS ON LOCK AND CALL LIGHT WITHIN REACH.
--- NOTE | 2023-04-08 04:00 | NUR ---
CHECKED THE PT STILL ON SLEEP. CHEST RISE AND FALL SYMMETRICALLY NOTED. RESPIRATION IS EVEN AND UNLABORED. ALL SAFETY MEASURES IMPLEMENTED. BED IN LOW POSITION, BED WHEELS ON LOCK AND CALL LIGHT WITHIN REACH.
[2023-04-08] MEDS ORDERED: VANCOMYCIN 500 MG VIAL ONE (05:12)
[2023-04-08] MEDS ORDERED: VANCOMYCIN 1,000 MG VIAL ONE (05:13)
[2023-04-08] MEDS: VANCOMYCIN 1,500 MG in NACL 0.9% 500 ML IV SCH ×2 (05:21→18:20)
[2023-04-08] MEDS: BLOOD GLUCOSE MONITORING 1 DEV DEV FS SCH ×4 (06:33→21:24)
[2023-04-08] MEDS: INSULIN LISPRO SLIDING SCALE 100 UNITS/ML VIAL SUBQ PRN ×4 (06:34→21:29)
--- NOTE | 2023-04-08 06:34 | NUR ---
PT BLOOD GLUCOSE IS 245. HUMALOG INSULIN 4 UNITS WAS GIVEN TO PT.
[2023-04-08 06:53] LABS: BASOPHILS % (AUTO) 0.6 % (0.0-2.0); EOSINOPHILS # (AUTO) 0.1 K/uL (0-0.4); EOSINOPHILS % (AUTO) 1.5 % (0.0-4.0); HEMOGLOBIN 11.5 g/dL (12.0-18.0); LYMPHOCYTES # (AUTO) 2.3 K/uL (2.0-11.5); LYMPHOCYTES % (AUTO) 31.6 % (20.5-51.1); MEAN CORPUSCULAR HEMOGLOBIN 28 pg (27-31); MEAN CORPUSCULAR HGB CONC 34 g/dL (33-37); MEAN CORPUSCULAR VOLUME 83.4 fL (80-94); MONOCYTES # (AUTO) 0.7 K/uL (0.8-1.0); MONOCYTES % (AUTO) 9.8 % (1.7-9.3); NEUTROPHILS # (AUTO) 4.2 K/uL (1.8-7.7); NEUTROPHILS % (AUTO) 56.5 % (42.2-75.2); PLATELET COUNT (AUTO) 279 K/uL (140-450); RED BLOOD CELL COUNT(AUTO) 4.07 MIL/uL (4.20-6.10); RED CELL DISTRIBUTION WIDTH 12.4 % (11.6-13.7); WHITE BLOOD COUNT (AUTO) 7.4 K/uL (4.8-10.8)
[2023-04-08 07:08] LABS: ANION GAP 8.5 (8-16); CARBON DIOXIDE 28.2 mmol/L (21-32); CREATININE 0.8 mg/dL (0.6-1.3); POTASSIUM 3.7 mmol/L (3.5-5.1)
--- NOTE | 2023-04-08 07:25 | NUR ---
PT IS STABLE. ENDORSED PT TO MORNING SHIFT NURSE FOR CONTINUITY OF CARE.
--- NOTE | 2023-04-08 07:32 | NUR ---
GOT REPORT FROM , THE NIGHT NURSE PT IS AWAKE , DISCUSSED POC.[id number]
[2023-04-08 08:00] VITALS: BP 149/96
[2023-04-08 08:39] LABS: MAGNESIUM 1.6 mg/dL (1.8-2.4); PHOSPHORUS 3.3 mg/dL (2.5-4.9)
[2023-04-08] MEDS: DOCUSATE SODIUM 100 MG GELCAP PO SCH (09:04)
[2023-04-08] MEDS: NIFEdipine 60 MG TABER PO SCH (09:04)
[2023-04-08] MEDS: NACL 0.9% 1,000 ML IV SCH ×2 (10:35→22:55)
[2023-04-08] MEDS: MAGNESIUM OXIDE 400 MG TAB PO PRN (11:17)
[2023-04-08] MEDS: GAUZE TP SCH (13:45)
[2023-04-08 16:00] VITALS: BP 152/92
--- NOTE | 2023-04-08 18:38 | NUR ---
PT GIVEN HYDRALAZINE FOR HIGH BP ORDERED AND THE BP DOWN FROM 184/87 TO 148/83.[id number]
--- NOTE | 2023-04-08 21:15 | NUR ---
ADMINISTERED ALL SCHEDULED DUE MEDICATIONS. PATIENT RESTING COMFORTABLY IN BED. NO DISTRESS. IVF INFUSING WELL. NO COMPLAINTS OF PAIN AT THIS TIME. CALL LIGHT IN REACH
[2023-04-09 04:00] VITALS: BP 136/89
[2023-04-09] MEDS: metroNIDAZOLE 500 MG/NS PREMIX 100 ML IV SCH ×3 (04:42→20:30)
[2023-04-09] MEDS: VANCOMYCIN 1,500 MG in NACL 0.9% 500 ML IV SCH ×2 (05:43→18:05)
[2023-04-09 06:16] LABS: ANION GAP 9.2 (8-16); CARBON DIOXIDE 28.7 mmol/L (21-32); CREATININE 0.8 mg/dL (0.6-1.3); POTASSIUM 3.9 mmol/L (3.5-5.1)
[2023-04-09 06:21] LABS: MAGNESIUM 1.6 mg/dL (1.8-2.4); PHOSPHORUS 3.5 mg/dL (2.5-4.9)
[2023-04-09] MEDS: BLOOD GLUCOSE MONITORING 1 DEV DEV FS SCH ×4 (06:37→21:10)
[2023-04-09] MEDS: INSULIN LISPRO SLIDING SCALE 100 UNITS/ML VIAL SUBQ PRN ×4 (06:38→21:07)
[2023-04-09 06:56] LABS: BASOPHILS % (AUTO) 0.6 % (0.0-2.0); EOSINOPHILS # (AUTO) 0.2 K/uL (0-0.4); EOSINOPHILS % (AUTO) 2.3 % (0.0-4.0); HEMATOCRIT 31.8 % (36-52); HEMOGLOBIN 10.8 g/dL (12.0-18.0); LYMPHOCYTES # (AUTO) 2.7 K/uL (2.0-11.5); LYMPHOCYTES % (AUTO) 35.3 % (20.5-51.1); MEAN CORPUSCULAR HEMOGLOBIN 28 pg (27-31); MEAN CORPUSCULAR HGB CONC 34 g/dL (33-37); MEAN CORPUSCULAR VOLUME 82.7 fL (80-94); MONOCYTES # (AUTO) 0.9 K/uL (0.8-1.0); MONOCYTES % (AUTO) 11.5 % (1.7-9.3); NEUTROPHILS # (AUTO) 3.9 K/uL (1.8-7.7); NEUTROPHILS % (AUTO) 50.3 % (42.2-75.2); PLATELET COUNT (AUTO) 298 K/uL (140-450); RED BLOOD CELL COUNT(AUTO) 3.84 MIL/uL (4.20-6.10); RED CELL DISTRIBUTION WIDTH 12.6 % (11.6-13.7); WHITE BLOOD COUNT (AUTO) 7.8 K/uL (4.8-10.8)
--- NOTE | 2023-04-09 07:24 | NUR ---
PATIENT STABLE. ENDORSED PATIENT TO NURSE MICHAEL FOR CONTINUITY OF CARE.
--- NOTE | 2023-04-09 07:39 | NUR ---
GOT REPORT FROM THE NIGHT NURSE PT IS AWAKE NO [id number]
[2023-04-09] MEDS: NIFEdipine 60 MG TABER PO SCH (08:20)
[2023-04-09] MEDS: DOCUSATE SODIUM 100 MG GELCAP PO SCH (08:20)
[2023-04-09] MEDS: MAGNESIUM OXIDE 400 MG TAB PO PRN (08:25)
[2023-04-09] MEDS: NACL 0.9% 1,000 ML IV SCH ×2 (11:25→23:55)
[2023-04-09] MEDS: GAUZE TP SCH (13:08)
--- NOTE | 2023-04-09 14:51 | NUR ---
04/09/23 RD FOLLOW UP COMPLETED PLEASE REFER TO NUTRITION ASSESSMENT UNDER CARE ACTIVITY FOR ESTIMATED NUTRITIONAL NEEDS. [facility]. [facility] 2. RD RECOMMENDS TO CONTINUE WITH PROSOURCE BID TO HELP WITH WOUNDS. THIS WILL PROVIDE 120 CALORIES AND 30 GRAMS OF PROTEIN. 3. MONITOR GI, PO INTAKE, AND NUTRITION RELATED LAB VALUES. 4. RD TO FOLLOW-UP 3-5 DAYS, MODERATE RISK MONSERRAT MARQUEZ RD
--- NOTE | 2023-04-09 14:59 | NUR ---
DC PLANNING A 32 Y.O.MALE PATIENT ADMITTED TO TELEMETRY FOR A 2 WEEK HX OF WORSENING REDNESS AND SWELLING OF RIGHT 2ND TOE WITH DRAINAGE.HX OF HTN,DIABETIC NEUROPATHY AND DM.ON METFORMIN AND INSULIN AT HOME. ON VANCO.FLAGYL AND CEFTRIAXONE.ID ON BOARD.CXR 04/05 SHOWS BONE INFECTION DISTAL PHALANX RIGHT 2ND TOE .WITH DAILY BETADINE BANDAGE.PODIATRY FOLLOWING.DC PLAN -DC HOME WITH 6 WEEKS ABX IF INFECTION HAS NOT SPREAD BEYOND RIGHT 2ND TOE.CM TO FOLLOW.. Addendum: 04/10/23 at 1028 by DANG VIRK CM RECEIVED ORDER FOR PATIENT TO RECEIVE HOME HEALTH FOR IV INFUSION. AND OUT PATIENT ENDOCINE CONSULT. [facility] AND FAXED IV INFUSION PACKET TO [facility].. RECEIVED CALL FROM [facility] PATIENT WAS ACCEPTED AND WITH BE STARTING INFUSION TOMORROW. Addendum: 04/10/23 at 1031 by DANG VIRK CM ORDER WAS FAXED TO [facility], [facility]. Addendum: 04/10/23 at 1453 by YUE GODWIN CM DC PLANNING PATIENT IS ALERT AND ORIENTED WITH STABLE VS.FOR DISCHARGE TODAY.[facility] TO ADMINISTER ABX FOR 6 WEEKS AT HOME.PATIENT ASKING FOR PT EVAL FOR WEIGHT BEARING STATUS.CHARGE NURSE MILLI ADVISED THAT [facility] IS AVAILABLE IN ER IF NEEDED. Addendum: 04/10/23 at 1544 by YUE GODWIN CM DC PLANNING -LATE ENTRY NO AVAILABLE PT TO SEE PATIENT TODAY.ADVISED DR. CULP.PATIENT TO WALK WITH A NURSE WITH [facility] FROM ER.HOME HEALTH REQUEST FOR WOUND CARE FAXED TO [facility].WILL WILL FOLLOW UP WITH GABRIELA LUNDY COAL CONVEYOR OPERATOR FOR HOME HEALTH WOUND CARE REQUEST. Addendum: 04/10/23 at 1551 by YUE GODWIN CM DC PLANNING-ADDENDUM LEFT A MESSAGE TO GABRIELA SARKAR CM RE: NEED FOR HOME HEALTH FOR WOUND CARE. Addendum: 04/10/23 at 1702 by YUE GODWIN CM DC PLANNING-LATE ENTRY [facility] TO SEE PATIENT FOR WOUND CARE.PHONE NUMBER .PRETTY FROM [employer] ALREADY INFORMED [facility] THAT [facility] ACCEPTED PATIENT.
[2023-04-09 16:00] VITALS: BP 144/88
--- NOTE | 2023-04-09 19:17 | NUR ---
gave report to the night nurse, pt everette vallejo
--- NOTE | 2023-04-09 19:53 | NUR ---
PATIENT RESTING COMFORTABLY IN BED. NO SOB ON ROOM AIR. DENIES PAIN. CALL LIGHT IN REACH. MOM AT BEDSIDE. VANCO INFUSING ORDERED TO DIANA PICC LINE.
[2023-04-10 04:00] VITALS: BP 165/99
[2023-04-10] MEDS: metroNIDAZOLE 500 MG/NS PREMIX 100 ML IV SCH ×2 (04:23→13:36)
[2023-04-10] MEDS: hydrALAZINE 20 MG/ML VIAL IVP PRN (04:39)
[2023-04-10] MEDS: VANCOMYCIN 1,500 MG in NACL 0.9% 500 ML IV SCH ×2 (05:29→17:54)
[2023-04-10] MEDS: BLOOD GLUCOSE MONITORING 1 DEV DEV FS SCH ×3 (06:36→16:30)
[2023-04-10 06:37] LABS: BASOPHILS # (AUTO) 0.1 K/uL (0.00-0.22); BASOPHILS % (AUTO) 0.9 % (0.0-2.0); EOSINOPHILS # (AUTO) 0.2 K/uL (0-0.4); EOSINOPHILS % (AUTO) 2.5 % (0.0-4.0); HEMATOCRIT 33.6 % (36-52); HEMOGLOBIN 11.3 g/dL (12.0-18.0); LYMPHOCYTES # (AUTO) 2.3 K/uL (2.0-11.5); LYMPHOCYTES % (AUTO) 32.1 % (20.5-51.1); MEAN CORPUSCULAR HEMOGLOBIN 28 pg (27-31); MEAN CORPUSCULAR HGB CONC 34 g/dL (33-37); MEAN CORPUSCULAR VOLUME 83.6 fL (80-94); MONOCYTES # (AUTO) 0.8 K/uL (0.8-1.0); MONOCYTES % (AUTO) 11.2 % (1.7-9.3); NEUTROPHILS # (AUTO) 3.7 K/uL (1.8-7.7); NEUTROPHILS % (AUTO) 53.3 % (42.2-75.2); PLATELET COUNT (AUTO) 295 K/uL (140-450); RED BLOOD CELL COUNT(AUTO) 4.02 MIL/uL (4.20-6.10); RED CELL DISTRIBUTION WIDTH 12.6 % (11.6-13.7)
[2023-04-10] MEDS: INSULIN LISPRO SLIDING SCALE 100 UNITS/ML VIAL SUBQ PRN ×3 (06:37→17:49)
[2023-04-10 06:56] LABS: ANION GAP 11.8 (8-16); CARBON DIOXIDE 25.1 mmol/L (21-32); CREATININE 0.8 mg/dL (0.6-1.3); POTASSIUM 3.9 mmol/L (3.5-5.1)
[2023-04-10 07:00] LABS: MAGNESIUM 1.6 mg/dL (1.8-2.4); PHOSPHORUS 3.3 mg/dL (2.5-4.9)
--- NOTE | 2023-04-10 07:44 | NUR ---
ENDORSED TO DAY SHIFT NURSE FOR CONTINUITY OF CARE. PT STABLE.
[2023-04-10 08:00] VITALS: BP 176/105
--- NOTE | 2023-04-10 08:00 | NUR ---
Patient's Plan of Care was discussed and reviewed with ASBESTOS SIDING INSTALLER: BHUPINDER
[2023-04-10] MEDS: DOCUSATE SODIUM 100 MG GELCAP PO SCH (08:23)
[2023-04-10] MEDS: NIFEdipine 60 MG TABER PO SCH (08:24)
[2023-04-10] MEDS: NACL 0.9% 1,000 ML IV SCH (11:59)
[2023-04-10] MEDS: MAGNESIUM OXIDE 400 MG TAB PO PRN (12:00)
[2023-04-10] MEDS: GAUZE TP SCH (13:00)
[2023-04-10] MEDS ORDERED: lisinopriL 20 MG TAB PO SCH (14:35)
[2023-04-10] MEDS ORDERED: LISI20TA29 PO (14:36)
[2023-04-10] MEDS ORDERED: NIFE60TA39 PO (14:36)
[2023-04-10 16:00] VITALS: BP 141/91
[2023-04-10 17:56] VITALS: BP 141/91
--- NOTE | 2023-04-10 19:12 | NUR ---
ENDORSED PT TO TRACK AND FIELD COACH NURSE FOR CONTINUITY OF CARE. PT IS STABLE.
--- NOTE | 2023-04-10 19:30 | NUR ---
RECEIVED PT FROM DAY NURSE FOR CONTINUITY OF CARE. PT IS CURRENTLY RECEIVING ANTIBIOTICS. AND WILL BE D/C'D AFTER. POC DISCUSSED.PT IS STABLE.
--- NOTE | 2023-04-10 20:40 | NUR ---
FAMILY AT BEDSIDE. DISCHARGE PHOTOS TAKEN. REVIEWED DISCHARGE PAPERS AND DISCHARGE MEDICATIONS. PICC LINE IN PLACE TO BE USED FOR HOME ANTIBIOTICS. WOUND DRESSING CHANGED. ALL QUESTIONS ANSWERED. PATIENT IS STABLE. PT WAS BROUGHT TO LOBBY VIA WHEELCHAIR WITH FAMILY.
== END 2023-04-10 20:23 | disposition home health service (06) | DRG 720 ==
LOC: MED 17:05 → MTU 19:59
PROVIDERS: ADMIT Hospitalist; ATTEND Hospitalist
PROC: 02HV33Z Insertion of Infusion Device into Superior Vena Cava, Percutaneous Approach (ICD-10-PCS; principal; 2023-04-09)
PROC: B548ZZA Ultrasonography of Superior Vena Cava, Guidance (ICD-10-PCS; 2023-04-09)
DX: A41.9 Sepsis, unspecified organism (principal); E44.0 Moderate protein-calorie malnutrition; E11.40 Type 2 diabetes mellitus with diabetic neuropathy, unspecified; E11.621 Type 2 diabetes mellitus with foot ulcer; M86.171 Other acute osteomyelitis, right ankle and foot; L97.516 Non-pressure chronic ulcer of other part of right foot with bone involvement without evidence of necrosis; E66.01 Morbid (severe) obesity due to excess calories; E11.65 Type 2 diabetes mellitus with hyperglycemia; E11.69 Type 2 diabetes mellitus with other specified complication; Z20.822 Contact with and (suspected) exposure to COVID-19; Z79.4 Long term (current) use of insulin; Z79.899 Other long term (current) drug therapy; Z68.30 Body mass index [BMI] 30.0-30.9, adult
CPT/HCPCS: 36415; 71045; 73660; 73700; 80048; 80053; 80202; 81001; 82009; 82948; 83735; 84100; 85025; 85651; 86140; 87040; 87070; 87075; 87081; 87086; 87205; 96361; 96374; 99285; J0360; J0696; J1644; J1815; J3370; J3475; J3490; J7030; J7060; Q0092

== ENCOUNTER 2024-02-26 23:40 | Inpatient (IN) | payer OTHER ==
[~2024-02-26] VITALS: Ht 175.3 cm; Wt 111.1 kg
[~2024-02-26 23:40] MED LIST changes: -CEPH-588 PO; +INSU100I34 SQ; +INSU100I7 SQ; +LISI20TA29 PO; +NIFE60TA39 PO; -NIFE60TE79 PO; -SULF-58 PO
[2024-02-27 00:07] VITALS: BP 145/96; PULSE 106; RESP 17; TEMP 99.3; O2SAT 99
[2024-02-27] MEDS ORDERED: cefTRIAXone 1,000 MG VIAL ONE (01:43)
[2024-02-27] MEDS ORDERED: LIDOCAINE MPF 1% 5 ML ONE (01:43)
[2024-02-27] MEDS: cefTRIAXone 1,000 MG in LIDOCAINE MPF 1% 2.1 ML IM ONE (01:53)
[2024-02-27 02:23] VITALS: O2SAT 98
[2024-02-27] MEDS ORDERED: AMOX-1230 PO (03:38)
[2024-02-27] MEDS: lisinopriL 20 MG TAB PO ONE (03:41)
[2024-02-27] MEDS: CLONIDINE HYDROCHLORIDE 0.1 MG TAB PO ONE (03:51)
[2024-02-27] MEDS ORDERED: PIPERACILLIN/TAZOBACTAM 3.375 GM VIAL IV ONE (04:39)
[2024-02-27] MEDS: NACL 0.9% 1,000 ML IV ONE ×2 (04:43→05:49)
[2024-02-27] MEDS: PIPERACILLIN/TAZOBACTAM 3.375 GM in DEXTROSE 5% 50 ML IV ONE (04:59)
[2024-02-27 05:07] LABS: BASOPHILS # (AUTO) 0.1 K/uL (0.00-0.22); BASOPHILS % (AUTO) 0.2 % (0.0-2.0); HEMATOCRIT 34.1 % (36-52); HEMOGLOBIN 11.3 g/dL (12.0-18.0); LYMPHOCYTES % (AUTO) 8.9 % (20.5-51.1); MEAN CORPUSCULAR HEMOGLOBIN 28 pg (27-31); MEAN CORPUSCULAR HGB CONC 33 g/dL (33-37); MEAN CORPUSCULAR VOLUME 83.6 fL (80-94); MONOCYTES # (AUTO) 1.1 K/uL (0.8-1.0); MONOCYTES % (AUTO) 4.7 % (1.7-9.3); NEUTROPHILS # (AUTO) 19.4 K/uL (1.8-7.7); NEUTROPHILS % (AUTO) 86.2 % (42.2-75.2); PLATELET COUNT (AUTO) 178 K/uL (140-450); RED BLOOD CELL COUNT(AUTO) 4.08 MIL/uL (4.20-6.10); RED CELL DISTRIBUTION WIDTH 13.7 % (11.6-13.7); WHITE BLOOD COUNT (AUTO) 22.6 K/uL (4.8-10.8)
[2024-02-27] MEDS ORDERED: EMPA25TA PO (05:08)
[2024-02-27] MEDS ORDERED: INSU100V11 SQ (05:08)
[2024-02-27] MEDS: LABETALOL 20 MG/4 ML VIAL IVP ONE (05:14)
[2024-02-27 05:16] LABS: ANION GAP 11.6 (8-16); CALCIUM 8.1 mg/dL (8.5-10.1); CREATININE 1.6 mg/dL (0.6-1.3); POTASSIUM 3.6 mmol/L (3.5-5.1)
[2024-02-27] MEDS ORDERED: LOSA-272 PO (05:21)
[2024-02-27 05:22] LABS: ALBUMIN 2.4 g/dL (3.4-5.0); BILIRUBIN,DIRECT 0.1 mg/dL (0.0-0.3); TOTAL BILIRUBIN 0.5 mg/dL (0.0-1.0); TOTAL PROTEIN, SERUM 6.6 g/dL (6.4-8.2)
[2024-02-27 05:27] LABS: LACTIC ACID 2.3 mmol/L (0.4-2.0)
[2024-02-27] MEDS ORDERED: MAG SULF 2000 MG/WATER PREMIX 50 ML IV PRN (06:45)
[2024-02-27] MEDS ORDERED: VANCOMYCIN PER PHARMACY MC PRN (06:45)
[2024-02-27] MEDS ORDERED: ONDANSETRON 4 MG/2 ML VIAL IVP PRN (06:45)
[2024-02-27] MEDS ORDERED: MAGNESIUM OXIDE 400 MG TAB PO PRN (06:45)
[2024-02-27] MEDS ORDERED: MORPHINE SULFATE 2 MG/ML SYR IVP PRN (06:45)
[2024-02-27] MEDS ORDERED: KCL 20 MEQ IN 100 mL PREMIX 200 ML IV PRN (06:45)
[2024-02-27] MEDS: ACETAMINOPHEN EXTRA STRENGTH 500 MG TAB PO ONE (06:48)
[2024-02-27] MEDS: NACL 0.9% 1,000 ML IV SCH (08:30)
[2024-02-27 10:30] VITALS: RESP 19; O2SAT 97
[2024-02-27] MEDS: VANCOMYCIN 1.25GM PREMIX 250 ML IV SCH (11:02)
[2024-02-27] MEDS: DOCUSATE SODIUM 100 MG GELCAP PO SCH (11:02)
[2024-02-27] MEDS ORDERED: INSULIN LISPRO SLIDING SCALE 100 UNITS/ML VIAL SUBQ PRN (11:50)
[2024-02-27 12:00] VITALS: BP 112/79; PULSE 89; RESP 18; TEMP 98.6; O2SAT 98
[2024-02-27] MEDS ORDERED: DEXTROSE 50% 50 ML SYR IVP PRN (12:00)
[2024-02-27] MEDS: metroNIDAZOLE 500 MG/NS PREMIX 100 ML IV SCH (15:48)
[2024-02-27 16:00] VITALS: BP 119/66; PULSE 81; PULSE 83; RESP 18; TEMP 98.4; O2SAT 98
[2024-02-27] MEDS ORDERED: BLOOD GLUCOSE MONITORING 1 DEV DEV FS SCH (16:30)
[2024-02-27] MEDS: INSULIN LISPRO SLIDING SCALE 100 UNITS/ML VIAL SUBQ PRN (16:42)
[2024-02-27] MEDS: BLOOD GLUCOSE MONITORING 1 DEV DEV FS SCH (16:43)
[2024-02-27] MEDS: HYDROcodone/APAP 5/325 MG 1 TAB TAB PO PRN (18:35)
[2024-02-27 20:00] VITALS: BP 133/80; PULSE 92; PULSE 97; RESP 18; TEMP 97.5; O2SAT 97
[2024-02-27] MEDS: MEDS-TO-BEDS MC SCH (20:21)
[2024-02-28] VITALS (7 sets, daily range): BP systolic 140–187; BP diastolic 79–101; PULSE 94–111; RESP 18–20; TEMP 96.6–99; O2SAT 97–98
[2024-02-28 03:07] LABS: APPEARANCE,URINE CLEAR (CLEAR); BILIRUBIN,URINE NEGATIVE (NEGATIVE); BLOOD, URINE 1+ (NEGATIVE); COLOR,URINE YELLOW (YELLOW); LEUKOCYTE ESTERASE ,URINE TRACE (NEGATIVE); NITRITE, URINE NEGATIVE (NEGATIVE); PROTEIN,URINE 3+ (NEGATIVE); UGLUCOSE 3+ (NEGATIVE); UROBILINOGEN,URINE 0.2 EU/dL (0.2 - 1)
[2024-02-28 03:13] LABS: BACTERIA,URINE 10-30 (MOD) /HPF (None Seen); MUCUS,URINE 1+ /LPF (None Seen); RBC,URINE 11-20 (MOD) /HPF (0-5); SQUAMOUS EPITHELIAL CELL,UR 4-10 (MOD) /LPF (0-3 (FEW)); WBC,URINE 16-25 (MOD) /HPF (0-5)
[2024-02-28] MEDS: hydrALAZINE 20 MG/ML VIAL IVP PRN (05:12)
[2024-02-28] MEDS: ACETAMINOPHEN 325 MG TAB PO PRN (05:18)
[2024-02-28 07:06] LABS: CALCIUM 7.4 mg/dL (8.5-10.1); CARBON DIOXIDE 24.8 mmol/L (21-32); CREATININE 1.3 mg/dL (0.6-1.3); POTASSIUM 3.8 mmol/L (3.5-5.1)
[2024-02-28 07:21] LABS: BASOPHILS # (AUTO) 0.1 K/uL (0.00-0.22); BASOPHILS % (AUTO) 0.6 % (0.0-2.0); HEMATOCRIT 32.7 % (36-52); HEMOGLOBIN 10.8 g/dL (12.0-18.0); LYMPHOCYTES # (AUTO) 1.8 K/uL (2.0-11.5); MEAN CORPUSCULAR HEMOGLOBIN 28 pg (27-31); MEAN CORPUSCULAR HGB CONC 33 g/dL (33-37); MEAN CORPUSCULAR VOLUME 84.4 fL (80-94); MONOCYTES # (AUTO) 1.2 K/uL (0.8-1.0); MONOCYTES % (AUTO) 7.4 % (1.7-9.3); NEUTROPHILS # (AUTO) 13.2 K/uL (1.8-7.7); PLATELET COUNT (AUTO) 154 K/uL (140-450); RED BLOOD CELL COUNT(AUTO) 3.87 MIL/uL (4.20-6.10); RED CELL DISTRIBUTION WIDTH 13.7 % (11.6-13.7); WHITE BLOOD COUNT (AUTO) 16.3 K/uL (4.8-10.8)
[2024-02-28] MEDS: LOSARTAN 50 MG TAB PO SCH (20:09)
[2024-02-29 04:00] VITALS: BP 189/99; PULSE 112; RESP 19; TEMP 99.1; O2SAT 98
[2024-02-29 08:00] VITALS: BP 139/81; PULSE 113; RESP 18; TEMP 98; O2SAT 98
[2024-02-29 08:10] LABS: BASOPHILS % (AUTO) 0.2 % (0.0-2.0); EOSINOPHILS % (AUTO) 0.3 % (0.0-4.0); HEMATOCRIT 33.5 % (36-52); HEMOGLOBIN 11.1 g/dL (12.0-18.0); LYMPHOCYTES # (AUTO) 2.1 K/uL (2.0-11.5); LYMPHOCYTES % (AUTO) 15.3 % (20.5-51.1); MEAN CORPUSCULAR HEMOGLOBIN 28 pg (27-31); MEAN CORPUSCULAR HGB CONC 33 g/dL (33-37); MEAN CORPUSCULAR VOLUME 83.7 fL (80-94); MONOCYTES # (AUTO) 0.9 K/uL (0.8-1.0); NEUTROPHILS # (AUTO) 10.5 K/uL (1.8-7.7); NEUTROPHILS % (AUTO) 77.2 % (42.2-75.2); PLATELET COUNT (AUTO) 207 K/uL (140-450); RED CELL DISTRIBUTION WIDTH 13.5 % (11.6-13.7); WHITE BLOOD COUNT (AUTO) 13.5 K/uL (4.8-10.8)
[2024-02-29 08:23] LABS: ANION GAP 13.5 (8-16); CALCIUM 7.6 mg/dL (8.5-10.1); CARBON DIOXIDE 22.8 mmol/L (21-32); CREATININE 1.3 mg/dL (0.6-1.3); POTASSIUM 3.3 mmol/L (3.5-5.1)
[2024-02-29] MEDS ORDERED: lisinopriL 20 MG TAB PO SCH (09:00)
[2024-02-29] MEDS ORDERED: NIFEdipine 60 MG TABER PO SCH (09:00)
[2024-02-29] MEDS: GAUZE TP SCH (13:10)
[2024-02-29 16:00] VITALS: BP 172/88; PULSE 101; RESP 20; TEMP 97.9; O2SAT 98
[2024-02-29 20:00] VITALS: BP 143/83; PULSE 104; RESP 18; TEMP 98.5; O2SAT 95
[2024-02-29] MEDS: POTASSIUM CHLORIDE 10 MEQ TABER PO PRN (22:51)
[2024-03-01 06:35] LABS: BASOPHILS % (AUTO) 0.4 % (0.0-2.0); EOSINOPHILS # (AUTO) 0.1 K/uL (0-0.4); EOSINOPHILS % (AUTO) 1.1 % (0.0-4.0); HEMATOCRIT 33.2 % (36-52); HEMOGLOBIN 11.1 g/dL (12.0-18.0); LYMPHOCYTES # (AUTO) 2.5 K/uL (2.0-11.5); LYMPHOCYTES % (AUTO) 25.4 % (20.5-51.1); MEAN CORPUSCULAR HEMOGLOBIN 28 pg (27-31); MEAN CORPUSCULAR HGB CONC 34 g/dL (33-37); MEAN CORPUSCULAR VOLUME 83.3 fL (80-94); MONOCYTES # (AUTO) 1.1 K/uL (0.8-1.0); NEUTROPHILS # (AUTO) 6.2 K/uL (1.8-7.7); NEUTROPHILS % (AUTO) 62.1 % (42.2-75.2); PLATELET COUNT (AUTO) 218 K/uL (140-450); RED BLOOD CELL COUNT(AUTO) 3.98 MIL/uL (4.20-6.10); RED CELL DISTRIBUTION WIDTH 13.7 % (11.6-13.7)
[2024-03-01 06:54] LABS: ANION GAP 13.3 (8-16); CALCIUM 7.5 mg/dL (8.5-10.1); CARBON DIOXIDE 23.4 mmol/L (21-32); CREATININE 1.1 mg/dL (0.6-1.3); POTASSIUM 3.7 mmol/L (3.5-5.1)
[2024-03-01 08:00] VITALS: BP 146/93; PULSE 105; RESP 20; TEMP 98.2; O2SAT 95
[2024-03-01 08:12] VITALS: PULSE 98; RESP 20; O2SAT 95
[2024-03-01] MEDS: VANCOMYCIN 1,000 MG in NACL 0.9% 250 ML IV SCH (11:13)
[2024-03-01] MEDS ORDERED: CLIN300C2 PO (15:27)
[2024-03-01 16:00] VITALS: BP 157/94; PULSE 103; RESP 20; TEMP 98.4; O2SAT 95
[2024-03-01 16:09] VITALS: BP 124/75; PULSE 67; RESP 20; TEMP 97.1
== END 2024-03-01 17:30 | disposition home or self-care (01) | DRG 720 ==
LOC: MED 23:40 → MTU 02-27 06:44
PROVIDERS: ADMIT Hospitalist; ATTEND Hospitalist
DX: A41.9 Sepsis, unspecified organism (principal); N17.0 Acute kidney failure with tubular necrosis; E43 Unspecified severe protein-calorie malnutrition; E11.65 Type 2 diabetes mellitus with hyperglycemia; E66.9 Obesity, unspecified; I10 Essential (primary) hypertension; L03.031 Cellulitis of right toe; N17.9 Acute kidney failure, unspecified; Z68.36 Body mass index [BMI] 36.0-36.9, adult; Z79.899 Other long term (current) drug therapy; W54.0XXA Bitten by dog, initial encounter; Y93.89 Activity, other specified; Y92.89 Other specified places as the place of occurrence of the external cause; Y99.8 Other external cause status
CPT/HCPCS: 36415; 73700; 76770; 80048; 80076; 80202; 81001; 82948; 83605; 83735; 85025; 85651; 86140; 87040; 87081; 87086; 93005; 96361; 96365; 96372; 96375; 99291; J0360; J0696; J1644; J1815; J2001; J2543; J3370; J3372; J3490; J7030; J7060; Q0092